=== PATIENT | male | born 1980 | race Caucasian/White ===

== ENCOUNTER 2019-07-28 16:05 | Emergency (ER) | payer MEDICAID ==
[~2019-07-28] VITALS: Ht 177.8 cm; Wt 79.5 kg
[2019-07-28 16:08] VITALS: Ht 177.8 cm; Wt 79.5 kg
[2019-07-28 16:22] LABS: APPEARANCE CLEAR (CLEAR); COLOR YELLOW (YELLOW)
[2019-07-28 16:23] LABS: BILIRUBIN NEGATIVE (NEGATIVE); GLUCOSE NEGATIVE (NEGATIVE); KETONE NEGATIVE (NEGATIVE); NITRITE NEGATIVE (NEGATIVE); PROTEIN NEGATIVE (NEGATIVE); SPECIFIC GRAVITY 1.015 (1.005-1.020); UROBILINOGEN NORMAL (NORMAL)
[2019-07-28 16:34] LABS: BASOPHILS 0.3 % (0-2); EOSINOPHILS 3.1 % (0-7); HEMOGLOBIN 16.5 g/dL (13.5-17.5); IMMATURE GRANULOCYTES 0.5 % (0-5); LYMPHOCYTES 35.4 % (15-50); MCH 32.1 pg (26.0-34.0); MCHC 34.4 g/dL (31.0-37.0); MCV 93.4 fL (80.0-100.0); MEAN PLATELET VOLUME 9.2 fL (7.4-10.4); MONOCYTES 6.7 % (2-11); PLATELET COUNT 354 10x3/uL (130-400); RBC 5.14 10x6/uL (4.20-6.10); RDW 12.6 % (11.5-14.5); WBC 8.6 10x3/uL (4.8-10.8)
[2019-07-28 16:42] LABS: CALC OSMOLALITY 283 mosm/kg (275-300); CALCIUM 8.7 mg/dL (8.5-10.1); CHLORIDE - SERUM 104 mmol/L (98-107); CREATININE - SERUM 1.1 mg/dL (0.6-1.3); GLUCOSE 128 mg/dL (74-106); POTASSIUM - SERUM 4.1 mmol/L (3.5-5.1); SODIUM 142 mmol/L (136-145); UREA NITROGEN 10 mg/dL (7-18); eGFR NON AFRICAN AMERICAN 79 mL/min (90-120)
[2019-07-28 16:48] LABS: ALBUMIN 3.6 g/dL (3.4-5.0); ALKALINE PHOSPHATASE 89 U/L (46-116); ALT (SGPT) 43 U/L (10-68); BILIRUBIN - TOTAL 0.18 mg/dL (0.2-1.3); PROTEIN - SERUM 6.8 g/dL (6.4-8.2)
[2019-07-28 17:12] VITALS: BP 122/84
== END 2019-07-28 17:13 | disposition home or self-care (01) ==
LOC: D.ER 16:05
PROVIDERS: Family Medicine
DX: R39.11 Hesitancy of micturition (principal)

== ENCOUNTER 2019-12-07 02:55 | Emergency (ER) | payer MEDICAID ==
[~2019-12-07] VITALS: Ht 177.8 cm; Wt 79.5 kg
[2019-12-07 03:00] VITALS: Ht 177.8 cm; Wt 79.5 kg
[2019-12-07 03:34] LABS: BASOPHILS 0.3 % (0-2); EOSINOPHILS 2.7 % (0-7); HEMATOCRIT 48.6 % (42.0-54.0); HEMOGLOBIN 16.1 g/dL (13.5-17.5); IMMATURE GRANULOCYTES 0.2 % (0-5); LYMPHOCYTES 41.8 % (15-50); MCH 30.9 pg (26.0-34.0); MCHC 33.1 g/dL (31.0-37.0); MCV 93.3 fL (80.0-100.0); MEAN PLATELET VOLUME 9.2 fL (7.4-10.4); MONOCYTES 6.5 % (2-11); NEUTROPHILS 48.5 % (40-80); PLATELET COUNT 389 10x3/uL (130-400); RBC 5.21 10x6/uL (4.20-6.10); RDW 12.8 % (11.5-14.5)
[2019-12-07 03:38] LABS: ANION GAP 9.5 mmol/L (8-16); CALCIUM 9.2 mg/dL (8.5-10.1); CARBON DIOXIDE 30.5 mmol/L (21.0-32.0); CREATININE - SERUM 1.3 mg/dL (0.6-1.3)
[2019-12-07 03:43] LABS: ALBUMIN 4.5 g/dL (3.4-5.0); BILIRUBIN - TOTAL 0.34 mg/dL (0.2-1.3); PROTEIN - SERUM 7.8 g/dL (6.4-8.2)
[2019-12-07 04:27] LABS: BILIRUBIN NEGATIVE (NEGATIVE); GLUCOSE NEGATIVE (NEGATIVE); KETONE NEGATIVE (NEGATIVE); NITRITE NEGATIVE (NEGATIVE); UROBILINOGEN NORMAL (NORMAL)
[2019-12-07] MEDS ORDERED: ULTRAM50 MG PO (06:10)
[2019-12-07] MEDS ORDERED: STERAPRED DS 1010 MG PO (06:10)
[2019-12-07 06:20] VITALS: BP 146/99
== END 2019-12-07 06:20 | disposition home or self-care (01) ==
LOC: D.ER 02:55
PROVIDERS: Family Medicine
DX: M54.9 Dorsalgia, unspecified (principal); Z87.442 Personal history of urinary calculi; M54.5 Low back pain

== ENCOUNTER 2019-12-20 04:21 | Emergency (ER) | payer MEDICAID ==
[~2019-12-20] VITALS: Ht 177.8 cm; Wt 81.6 kg
[~2019-12-20 04:21] MED LIST: STERAPRED DS 1010 MG PO; ULTRAM50 MG PO
[2019-12-20 04:25] VITALS: BP 133/77; Ht 177.8 cm; Wt 81.6 kg
== END 2019-12-20 04:55 | disposition left against medical advice (07) ==
LOC: D.ER 04:21
DX: M54.30 Sciatica, unspecified side (principal); R39.11 Hesitancy of micturition; Z53.29 Procedure and treatment not carried out because of patient's decision for other reasons; M54.5 Low back pain

== ENCOUNTER 2020-02-29 05:48 | Inpatient (IN) | payer MEDICAID ==
[~2020-02-29] VITALS: Ht 177.8 cm; Wt 81.6 kg
--- NOTE | ~2020-02-29 | OP ---
PATIENT NAME: SHANELLE GOYAL MEDICAL RECORD: [id number] :82 LOCATION:[id number] ADMISSION DATE:03/01/20 SURGEON: YESSY PEREZ MD DATE OF OPERATION: 03/01/2020 PREOPERATIVE DIAGNOSIS: Far lateral disc herniation L3-L4, right. POSTOPERATIVE DIAGNOSIS: Far lateral disc herniation L3-L4, right. PROCEDURE: Lumbar laminectomy, medial facetectomy and foraminotomy L3-L4 on the right with resection of far lateral disc herniation with METRx retractor. SURGEON: Yessy Perez MD DESCRIPTION AND TECHNIQUE: After induction of general endotracheal anesthesia, the patient was rolled prone on a Alexys frame. Lumbar spine was prepped and draped in usual sterile fashion. Fluoroscopic x-ray and spinal needle localized the L3-L4 interspace on the right side. A stab incision was created with a #11 blade. Series of dilators were used to advance a METRx retractor to the L3-L4 interspace on the right side. Level was confirmed with fluoroscopic x-ray. A microscope and Midas Ricardo drill were used to perform laminotomy, medial facetectomy and foraminotomy L3-L4 on the right. Hypertrophied ligamentum flavum was removed with Cloward rongeurs. Following this, the L3 and L4 nerve roots were identified. There was a little large foraminal disc herniation in the L3-4 foramen on the right. This was removed in a piecemeal fashion with pituitary rongeurs and curettes. Following this, the L3 and L4 nerve roots were decompressed well. Additional material was removed from the disc space. Meticulous hemostasis was maintained throughout the wound. The wound was irrigated with copious amounts of Ancef irrigant solution. The retractor was removed. The fascia was closed with 2-0 Vicryl suture, the subdermal layer was closed with 3-0 Vicryl suture. The skin was reapproximated with Steri-Strips and benzoin. A sterile dressing was applied to the wound. The patient was awakened in good condition and taken to recovery. All counts were reported as correct. Estimated blood loss was minimal. TRANSINT:[id number] Voice Confirmation ID: [id number] DOCUMENT ID: [id number] YESSY PEREZ MD CC: [id number] DICTATION DATE: 03/01/20 1311 FISH HEADER: 03/01/20 2230 ADM IN [facility] [address] [id number]
[2020-02-29] MEDS ORDERED: STERAPRED DS 1010 MG PO (06:50)
[2020-02-29] MEDS ORDERED: ULTRAM50 MG PO (06:50)
[2020-02-29 08:08] LABS: BASOPHILS 0.2 % (0-2); EOSINOPHILS 0.5 % (0-7); HEMATOCRIT 48.4 % (42.0-54.0); HEMOGLOBIN 16.4 g/dL (13.5-17.5); IMMATURE GRANULOCYTES 0.5 % (0-5); LYMPHOCYTES 13.6 % (15-50); MCH 31.8 pg (26.0-34.0); MCHC 33.9 g/dL (31.0-37.0); MCV 93.8 fL (80.0-100.0); MEAN PLATELET VOLUME 9.2 fL (7.4-10.4); MONOCYTES 2.9 % (2-11); NEUTROPHILS 82.3 % (40-80); PLATELET COUNT 337 10x3/uL (130-400); RBC 5.16 10x6/uL (4.20-6.10); WBC 12.4 10x3/uL (4.8-10.8)
[2020-02-29 09:00] LABS: CALC OSMOLALITY 276 mosm/kg (275-300); CARBON DIOXIDE 28.1 mmol/L (21.0-32.0); CHLORIDE - SERUM 102 mmol/L (98-107); CREATININE - SERUM 0.9 mg/dL (0.6-1.3); GLUCOSE 104 mg/dL (74-106); POTASSIUM - SERUM 3.8 mmol/L (3.5-5.1); SODIUM 139 mmol/L (136-145); UREA NITROGEN 11 mg/dL (7-18); eGFR NON AFRICAN AMERICAN > 90 mL/min (90-120)
[2020-02-29 09:04] LABS: ALBUMIN 4.2 g/dL (3.4-5.0); ALKALINE PHOSPHATASE 73 U/L (30-120); ALT (SGPT) 46 U/L (10-68)
--- NOTE | 2020-02-29 09:15 | NUR ---
PT TO MRI VIA STRETCHER.
--- NOTE | 2020-02-29 10:04 | NUR ---
PT BACK FROM MRI, ONLY ABLE TO DO L-SPINE
[2020-02-29 14:08] VITALS: BMI 25.8
[2020-02-29 17:08] VITALS: BP 139/84
--- NOTE | 2020-02-29 19:44 | NUR ---
PATIENT REQUESTED PAIN MED FOR 10/10 PAIN IN BACK AND DOWN HIS LEG. SIG OTHER AT BEDSIDE. PATIENT DENIES OTHER NEEDS. WILL CONTINUE TO MONITOR. BED IN LOWEST POSITION AND CL WITHIN REACH. ENCOURAGED THE PATIENT TO CALL IF SHE HAS NEEDS. WILL CONTINUE TO MONITOR.
[2020-02-29 20:00] VITALS: BP 129/76
[2020-02-29 21:34] LABS: BILIRUBIN NEGATIVE (NEGATIVE); GLUCOSE 50 mg/dL (NEGATIVE); KETONE SMALL mg/dL (NEGATIVE); NITRITE NEGATIVE (NEGATIVE); UROBILINOGEN NORMAL (NORMAL)
[2020-02-29 21:42] LABS: UDS - AMPHET POSITIVE QUAL (NEGATIVE); UDS - BARB NEGATIVE QUAL (NEGATIVE); UDS - BENZO NEGATIVE QUAL (NEGATIVE); UDS - COCAINE NEGATIVE QUAL (NEGATIVE); UDS - OPIATE POSITIVE QUAL (NEGATIVE); UDS - PCP NEGATIVE QUAL (NEGATIVE); UDS - THC NEGATIVE QUAL (NEGATIVE)
[2020-03-01] VITALS (7 sets, daily range): BP systolic 107–157; BP diastolic 62–93
[2020-03-01 07:05] LABS: BASOPHILS 0.1 % (0-2); EOSINOPHILS 0.1 % (0-7); HEMATOCRIT 45.5 % (42.0-54.0); HEMOGLOBIN 15.2 g/dL (13.5-17.5); IMMATURE GRANULOCYTES 0.4 % (0-5); LYMPHOCYTES 15.2 % (15-50); MCH 31.4 pg (26.0-34.0); MCHC 33.4 g/dL (31.0-37.0); MEAN PLATELET VOLUME 9.4 fL (7.4-10.4); MONOCYTES 7.9 % (2-11); NEUTROPHILS 76.3 % (40-80); PLATELET COUNT 366 10x3/uL (130-400); RBC 4.84 10x6/uL (4.20-6.10)
[2020-03-01 07:40] LABS: WBC 16.8 10x3/uL (4.8-10.8)
[2020-03-01 07:47] LABS: ALBUMIN 3.5 g/dL (3.4-5.0); ALKALINE PHOSPHATASE 66 U/L (30-120); ALT (SGPT) 36 U/L (10-68); CALCIUM 7.9 mg/dL (8.5-10.1); CARBON DIOXIDE 25.2 mmol/L (21.0-32.0); CHLORIDE - SERUM 104 mmol/L (98-107); CREATININE - SERUM 0.9 mg/dL (0.6-1.3); GLUCOSE 100 mg/dL (74-106); POTASSIUM - SERUM 3.7 mmol/L (3.5-5.1); PROTEIN - SERUM 6.3 g/dL (6.4-8.2); SODIUM 137 mmol/L (136-145); eGFR NON AFRICAN AMERICAN > 90 mL/min (90-120)
[2020-03-01 08:12] LABS: CALC OSMOLALITY 274 mosm/kg (275-300); UREA NITROGEN 14 mg/dL (7-18)
--- NOTE | 2020-03-01 13:40 | NUR ---
UPON FURTHER ASSESSMENT PATIENT DENIES ANY NUMBNESS/TINGLING TO ANY EXTREMITY. MOVES ALL EXTREIMITIES WITH PURPOSEFUL MOVEMENTS. SENSATIONS INTACT. UNABLE TO STATE IF PAIN IN LOWER BACK/RT LEG HAS HAD ANY IMPROVEMENT AT THIS TIME.
--- NOTE | 2020-03-01 14:00 | NUR ---
PATIENT RECEIVED TO ROOM WITH DRESSING INTACT TO LUMBAR. GOD SENSATION AND MOVEMENT TO BLE. COMPLAINS OF SLIGHT DISCOMFORT AT THIS TIME. IVF INFUSING AT PRESCRIBED RATE. ENCOURAGED TO USE CALL LIGHT FOR ASSSIT.
--- NOTE | 2020-03-01 19:50 | NUR ---
PATIENT RESTING IN BED WITH SIG OTHER AT BEDSIDE. ADMINISTERED PAIN MEDS PER PATIENT REQUEST. PATIENT DENIES OTHER NEEDS AT THIS TIME. BED IN LOWEST POSITION AND CALL LIGHT WITHIN REACH. ENCOURAGED THE PATIENT TO CALL IF HE HAS NEEDS. WILL CONTINUE TO MONITOR.
[2020-03-02 04:30] VITALS: BP 107/52
[2020-03-02 06:50] LABS: HEMATOCRIT 47.3 % (42.0-54.0); HEMOGLOBIN 15.6 g/dL (13.5-17.5); MCH 31.6 pg (26.0-34.0); MCV 95.7 fL (80.0-100.0); MEAN PLATELET VOLUME 9.7 fL (7.4-10.4); PLATELET COUNT 405 10x3/uL (130-400); RBC 4.94 10x6/uL (4.20-6.10); RDW 13.3 % (11.5-14.5); WBC 22.4 10x3/uL (4.8-10.8)
[2020-03-02 07:45] LABS: ALBUMIN 3.7 g/dL (3.4-5.0); ALKALINE PHOSPHATASE 86 U/L (30-120); ALT (SGPT) 39 U/L (10-68); BILIRUBIN - TOTAL 0.15 mg/dL (0.2-1.3); CALC OSMOLALITY 275 mosm/kg (275-300); CALCIUM 8.6 mg/dL (8.5-10.1); CHLORIDE - SERUM 102 mmol/L (98-107); GLUCOSE 151 mg/dL (74-106); POTASSIUM - SERUM 4.1 mmol/L (3.5-5.1); PROTEIN - SERUM 6.8 g/dL (6.4-8.2); SODIUM 136 mmol/L (136-145); UREA NITROGEN 16 mg/dL (7-18); eGFR NON AFRICAN AMERICAN 89 mL/min (90-120)
[2020-03-02 08:54] VITALS: BP 127/72
[2020-03-02 11:39] LABS: EOSINOPHILS 2 % (0-7); LYMPHOCYTES 3 % (15-50); MONOCYTES 5 % (2-11); NEUTROPHILS 88 % (40-80); PLATELET ESTIMATE INCREASED
[2020-03-02 13:05] VITALS: BP 121/82
[2020-03-02 13:53] VITALS: Ht 177.8 cm; Wt 81.6 kg
--- NOTE | 2020-03-02 15:27 | NUR ---
DC INSTRUCTIONS AND PAPERS GIVEN TO PT, QUESTIONS ANSWERED, IV REMOVED TIP INTACT, DC WITH BELONGINGS PER WC
== END 2020-03-02 15:28 | disposition home or self-care (01) | DRG 519 ==
LOC: D.ER 05:48 → OBSVTIME 07:55 → D.MS 07:55
PROVIDERS: Family Medicine; Family Medicine Adult Medicine; Neurological Surgery; ADMIT Family Medicine; ATTEND Family Medicine
PROC: 0ST20ZZ Resection of Lumbar Vertebral Disc, Open Approach (ICD-10-PCS; principal; 2020-03-01 10:00)
DX: M51.26 Other intervertebral disc displacement, lumbar region (principal); F17.203 Nicotine dependence unspecified, with withdrawal; R30.0 Dysuria; X50.9XXA Other and unspecified overexertion or strenuous movements or postures, initial encounter

== ENCOUNTER 2021-01-01 03:25 | Emergency (ER) | payer MEDICAID ==
[~2021-01-01] VITALS: Ht 177.8 cm; Wt 79.5 kg
[2021-01-01 03:29] VITALS: BP 164/108; Ht 177.8 cm; Wt 79.5 kg
[2021-01-01] MEDS ORDERED: PENICILLIN V P500 MG PO (03:47)
== END 2021-01-01 04:38 | disposition home or self-care (01) ==
LOC: D.ER 03:25
DX: K08.89 Other specified disorders of teeth and supporting structures (principal)